=== PATIENT | female | born 1965 | race Caucasian/White ===

== ENCOUNTER 2016-06-16 11:44 | Emergency (ER) | payer OTHER ==
[~2016-06-16] VITALS: Wt 63.5 kg
[~2016-06-16 11:44] MED LIST: ATIVAN0.5 MG PO; BACTRIM DS 8001 TAB PO; BUSPAR10 MG PO; CATAFLAM50 MG PO; CEPHALEXIN500 M1 PO; COGENTIN PO; DEPAKOTE500 MG PO; LISINOPRIL10 MG PO; LISINOPRIL5 MG PO; Motrin,Rufen800 MG PO; NEURONTIN300 MG PO; SEROQUEL200 MG PO; SEROQUEL25 MG PO; SEROQUEL400 M1 PO; SPIRIVA18 MCG INH; VISTARIL25 M1 PO; ZOLOFT PO
[2016-06-16] MEDS ORDERED: GABAPENTIN400 MG PO (12:07)
[2016-06-16] MEDS ORDERED: BENZTROPINE MESY1 MG PO (12:07)
[2016-06-16] MEDS ORDERED: SERTRALINE HYD100 MG PO (12:08)
[2016-06-16] MEDS ORDERED: ARIPIPRAZOLE10 MG PO (12:08)
[2016-06-16 12:45] LABS: URINE AMPHETAMINES < 1000 (1000ng/ml); URINE BARBITURATES < 200 (200ng/ml); URINE COCAINE < 300 (300ng/ml)
[2016-06-16 14:20] LABS: BASO # 0.1 10*3/uL (0.0-0.1); BASO % 0.6 % (0.0-1.0); EOS # 0.2 10*3/uL (0.0-0.4); EOS % 2.1 % (1.0-4.0); HEMATOCRIT 40.2 % (37.0-47.0); HEMOGLOBIN 13.5 g/dl (12.0-16.0); LYMPH # 2.4 10*3/uL (1.3-4.4); MEAN CELL VOLUME 90.1 fl (81.0-99.0); MEAN CORPUSCULAR HGB 30.3 pg (27.0-31.0); MEAN CORPUSCULAR HGB CONC 33.6 g/dl (33.0-37.0); MEAN PLATELET VOLUME 9.3 fl (9.6-12.3); MONO # 0.6 10*3/uL (0.1-1.0); MONO % 6.1 % (3.0-9.0); NEUT # 7.1 10*3/uL (2.3-7.9); NEUT % 67.8 % (47.0-73.0); PLATELET COUNT AUTOMATED 376 10*3/uL (130-400); RED BLOOD COUNT 4.46 10*6/uL (4.10-5.10); RED CELL DISTRI WIDTH 14.5 % (0-14.5); WHITE BLOOD COUNT 10.5 10*3/uL (4.8-10.8)
[2016-06-16 14:30] LABS: PROTHROMBIN TIME 10.3 SECONDS (9.0-12.4)
[2016-06-16 14:30] LABS: BILIRUBIN NEGATIVE (NEGATIVE); BLOOD NEGATIVE (NEGATIVE); CLARITY CLOUDY (CLEAR); COLOR YELLOW (YELLOW); GLUCOSE NEGATIVE (NEGATIVE); KETONE NEGATIVE (NEGATIVE); LEUKO ESTERASE NEGATIVE (NEGATIVE); NITRITE NEGATIVE (NEGATIVE); PH 5.5 (5.0-9.0); PROTEIN NEGATIVE (NEGATIVE); SPECIFIC GRAVITY >= 1.030 (1.005-1.030); UROBILINOGEN 0.2 E.U./dl (0.2-1.0)
[2016-06-16 14:39] LABS: ALBUMIN 4.1 gm/dl (3.1-4.5); BUN 21 mg/dl (7-24); CARBON DIOXIDE 25 mmol/L (21-32); CHLORIDE 108 mmol/L (98-107); CKMB 0.9 ng/ml (0.5-3.6); EST GLOM FILT AFRICAN AMERICAN > 60 ml/min; GLUCOSE 99 mg/dL (65-99); MAGNESIUM 2.3 mg/dL (1.5-2.1); POTASSIUM 4.4 mmol/L (3.5-5.1); SGOT/AST 17 IU/L (3-35); SGPT/ALT 21 U/L (12-78); SODIUM 142 mmol/L (136-145)
[2016-06-16 14:40] LABS: ALKALINE PHOSPHATASE 125 U/L (45-117); BILIRUBIN, TOTAL 0.3 mg/dl (0.2-1.0); C-REACTIVE PROTEIN 1.34 MG/DL (0-0.3); CPK 48 U/L (26-192); TOTAL PROTEIN 8.5 gm/dL (6.4-8.2)
[2016-06-16 14:40] LABS: URINE REFLEX COMMENT NO (NO)
[2016-06-16 14:41] LABS: EPITHELIAL CELLS 21-30; MUCOUS 2+; RBC 0-2 rbc/hpf (0-2)
[2016-06-16 14:42] LABS: TROPONIN I < 0.015 ng/ml (<0.045)
== END 2016-06-16 16:39 | disposition home or self-care (01) ==
LOC: ED 11:44
PROVIDERS: Emergency Medicine; Nurse Practitioner Family
DX: Z91.14 Patient's other noncompliance with medication regimen (principal); R82.5 Elevated urine levels of drugs, medicaments and biological substances; F17.200 Nicotine dependence, unspecified, uncomplicated

== ENCOUNTER → 2016-09-09 | Outpatient (CLI) | payer OTHER ==
[~2016-09-09] MED LIST changes: +ARIPIPRAZOLE10 MG PO; +BENZTROPINE MESY1 MG PO; +GABAPENTIN400 MG PO; +SERTRALINE HYD100 MG PO
[2016-09-09 08:41] LABS: BASO # 0.1 10*3/uL (0.0-0.1); BASO % 0.9 % (0.0-1.0); EOS # 0.2 10*3/uL (0.0-0.4); EOS % 1.9 % (1.0-4.0); HEMATOCRIT 41.1 % (37.0-47.0); HEMOGLOBIN 13.8 g/dl (12.0-16.0); LYMPH # 2.6 10*3/uL (1.3-4.4); LYMPH % 22.4 % (27.0-41.0); MEAN CELL VOLUME 89.5 fl (81.0-99.0); MEAN CORPUSCULAR HGB 30.1 pg (27.0-31.0); MEAN CORPUSCULAR HGB CONC 33.6 g/dl (33.0-37.0); MEAN PLATELET VOLUME 9.1 fl (9.6-12.3); MONO # 0.9 10*3/uL (0.1-1.0); MONO % 7.3 % (3.0-9.0); NEUT # 7.9 10*3/uL (2.3-7.9); NEUT % 67.2 % (47.0-73.0); PLATELET COUNT AUTOMATED 385 10*3/uL (130-400); RED BLOOD COUNT 4.59 10*6/uL (4.10-5.10); RED CELL DISTRI WIDTH 14.1 % (0-14.5); WHITE BLOOD COUNT 11.8 10*3/uL (4.8-10.8)
[2016-09-09 09:03] LABS: HEMOGLOBIN A1c 5.9 % (4.8-5.6)
[2016-09-09 09:11] LABS: ALBUMIN 3.8 gm/dl (3.1-4.5); BILIRUBIN, DIRECT < 0.1 mg/dL (0.0-0.2); BILIRUBIN, TOTAL 0.2 mg/dl (0.2-1.0); BUN 16 mg/dl (7-24); CARBON DIOXIDE 26 mmol/L (21-32); CHLORIDE 105 mmol/L (98-107); CHOLESTEROL 337 mg/dL (<200); EST GLOM FILT AFRICAN AMERICAN > 60 ml/min; GLUCOSE 92 mg/dL (65-99); POTASSIUM 4.4 mmol/L (3.5-5.1); SGOT/AST 14 IU/L (3-35); SGPT/ALT 17 U/L (12-78); SODIUM 139 mmol/L (136-145); T3 UPTAKE 32 % (31-39); TRIGLYCERIDES 502 mg/dl (<150)
[2016-09-09 09:19] LABS: ALKALINE PHOSPHATASE 128 U/L (45-117); FREE T4 0.72 ng/dl (0.76-1.46); HDL CHOLESTEROL 46 mg/dl (40-60); TOTAL PROTEIN 8.3 gm/dL (6.4-8.2)
== END | disposition home or self-care (01) ==
LOC: LAB 08:06
PROVIDERS: Nurse Practitioner Family
DX: Z79.899 Other long term (current) drug therapy (principal)

== ENCOUNTER 2016-09-12 07:27 | Emergency (ER) | payer OTHER ==
[~2016-09-12] VITALS: Ht 157.4 cm; Wt 63.5 kg
[2016-09-12] MEDS ORDERED: XANAX0.5 MG PO (07:34)
[2016-09-12] MEDS ORDERED: Motrin,Rufen800 MG PO (09:04)
== END 2016-09-12 09:09 | disposition home or self-care (01) ==
LOC: ED 07:27
DX: S90.31XA Contusion of right foot, initial encounter (principal); S60.222A Contusion of left hand, initial encounter; F17.200 Nicotine dependence, unspecified, uncomplicated; W18.09XA Striking against other object with subsequent fall, initial encounter; Y93.89 Activity, other specified; Y92.9 Unspecified place or not applicable; Y99.9 Unspecified external cause status

== ENCOUNTER 2016-11-14 16:52 | Inpatient (IN) | payer OTHER ==
[~2016-11-14] VITALS: Ht 157.5 cm; Wt 68.3 kg
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
--- NOTE | ~2016-11-14 | CON ---
[place], [place] REPORT OF CONSULTATION NAME: LEYLA SIFUENTES UNIT #: [id number] ROOM: [facility] DOCTOR: ATUL COULTER MD BIRTHDATE: [birth year] DOS: 11/17/2016 PSYCHIATRIC CONSULT. CHIEF COMPLAINT: "Can I go, I'm not suicidal, I'm not gonna hurt myself or anybody." HISTORY OF PRESENT ILLNESS: This is a 51-year-old white female who was admitted through the Emergency Room due to nausea and vomiting. The patient upon admission was found to have an elevated ammonia level of 67 and was rather confused and at times, belligerent. She was not totally cooperating with her care. Dr. Fitzpatrick did see her over the weekend and felt that she needed to be pink slipped so that she can have further medical treatment. She does report a lengthy history of bipolar disorder as well as PTSD and anxiety. The patient sees Vonda Wyman as well as a counselor at [facility] and has been prescribed gabapentin, Zoloft and Cogentin and states that these medications have been working for her. She denies depression at the current time. She convincingly denies suicidal ideation, homicidal ideation or any self-injurious behavior. She reports that she has appointments with her counselor and with Vonda [facility] and plans to follow up with them closely. MENTAL STATUS: She is alert and oriented to person, place with some time gaps. Mood does seem to be euthymic. Affect is appropriate. There are no symptoms of melina or hypomania. There are no overt auditory or visual hallucinations. No delusions, no paranoia. No suicidal thoughts, no self-injurious thoughts. She is forward thinking and has positive plans for the future. DIAGNOSES: Bipolar type 2 and posttraumatic stress disorder and alcohol abuse, if not alcohol dependence. PLAN: The patient should remain on her current psychotropic regimen. She should follow up with Dr. Vonda Wyman at [facility], her appointment is on November 25. There is no reason to continue the pink slip at this time as she is not acutely lethal. ATUL COULTER MD CM:CONSTR:REPORT OF CONSULTATION 1051 11/17/16 1341 interface
[~2016-11-14 16:52] MED LIST changes: +XANAX0.5 MG PO
[2016-11-14 17:24] LABS: BASO # 0.1 10*3/uL (0.0-0.1); BASO % 0.6 % (0.0-1.0); EOS # 0.1 10*3/uL (0.0-0.4); EOS % 0.6 % (1.0-4.0); HEMATOCRIT 39.4 % (37.0-47.0); HEMOGLOBIN 13.7 g/dl (12.0-16.0); LYMPH # 2.5 10*3/uL (1.3-4.4); LYMPH % 17.1 % (27.0-41.0); MEAN CELL VOLUME 83.8 fl (81.0-99.0); MEAN CORPUSCULAR HGB 29.1 pg (27.0-31.0); MEAN CORPUSCULAR HGB CONC 34.8 g/dl (33.0-37.0); MEAN PLATELET VOLUME 9.2 fl (9.6-12.3); MONO # 0.7 10*3/uL (0.1-1.0); MONO % 4.6 % (3.0-9.0); NEUT # 11.1 10*3/uL (2.3-7.9); NEUT % 76.9 % (47.0-73.0); PLATELET COUNT AUTOMATED 360 10*3/uL (130-400); WHITE BLOOD COUNT 14.4 10*3/uL (4.8-10.8)
[2016-11-14 17:41] LABS: ALBUMIN 3.4 gm/dl (3.1-4.5); ALKALINE PHOSPHATASE 127 U/L (45-117); BUN 8 mg/dl (7-24); CHLORIDE 107 mmol/L (98-107); CREATININE 0.69 mg/dL (0.55-1.02); POTASSIUM 3.5 mmol/L (3.5-5.1); SGOT/AST 18 IU/L (3-35); SGPT/ALT 18 U/L (12-78); SODIUM 139 mmol/L (136-145); TOTAL PROTEIN 7.4 gm/dL (6.4-8.2)
[2016-11-14 17:44] LABS: TROPONIN I < 0.015 ng/ml (<0.045)
[2016-11-14 17:45] LABS: ACETAMINOPHEN (TYLENOL) < 2.0 ug/ml (10-30)
[2016-11-14 17:54] VITALS: BP 132/97
--- NOTE | 2016-11-14 18:15 | NUR ---
PATIENT NOTED TO BE ATTEMPTING TO LEAVE SEVERAL TIMES. SECURITY HAS BEEN CALLED. PATIENT HAS BEEN PLACED INTO ROOM #11 AND MEDICATED WITH ATIVAN.
--- NOTE | 2016-11-14 18:41 | NUR ---
PATIENTS SHIRT HAS BEEN BAGGED AND PLACED INTO THE MED ROOM AT THIS TIME.
--- NOTE | 2016-11-14 18:42 | NUR ---
PATIENT STILL STANDING AT ROOM #11 DOOR BEATING ON DOOR WITH HANDS. BEATING ON WINDOW WITH HANDS.
--- NOTE | 2016-11-14 19:17 | NUR ---
PATIENT MOVES OUT OF ROOM 11 PUT INTO ROOM IN DIRECT VIEW OF NURSES DESK.
[2016-11-14 19:27] LABS: URINE AMPHETAMINES < 1000 (1000ng/ml); URINE BARBITURATES < 200 (200ng/ml); URINE BENZODIAZEPINES < 200 (200ng/ml); URINE CANNABINOIDS (THC) > 50 (50ng/ml); URINE COCAINE < 300 (300ng/ml); URINE METHADONE < 300 (300ng/ml); URINE OPIATES < 300 (300ng/ml)
[2016-11-14 19:29] LABS: URINE PHENCYCLIDINE < 25 (25ng/ml)
[2016-11-14 19:50] VITALS: BP 127/86
--- NOTE | 2016-11-14 20:24 | NUR ---
[facility] CAME TO GET PATIENT AND PATIENT RIPPED OUT IV. [facility] UNABLE TO TAKE PATIENT UNTIL PATIENT IS MORE COMPLIANT. PATIENT TRYING TO LEAVE, AGITATED HAD TO BE PUT INTO ROOM 11.
--- NOTE | 2016-11-14 20:33 | NUR ---
ATTEMPTED TO CHICKEN FANCIER PATIENT FROM ER. PATIENT WAS AGGRESSIVE. PULLED OUT IV. YELLING AT SECURITY. PATIENT WAS ESCORTED BY SECURITY BACK TO ER ROOM 11. NURSING RELATIONS LIAISON NOTIFIED.
--- NOTE | 2016-11-14 20:40 | NUR ---
PATIENT VISUALIZED ON VIDEO MONITOR
--- NOTE | 2016-11-14 21:00 | NUR ---
PATIENT MOVED BACK TO ROOM 5. PLACED ON MONITOR
[2016-11-14 21:25] VITALS: BP 124/80
--- NOTE | 2016-11-14 21:30 | NUR ---
[facility] COMING DOWN TO GET PATIENT. SHE REMAINS IN BED
[2016-11-14 21:45] VITALS: BP 149/83
--- NOTE | 2016-11-14 21:45 | NUR ---
A 51, admitted to ICCU, under the services of MATEUS Urena DO with a diagnosis of METABOLIC ENCEPHALOPATHY. Chief complaint is CONFUSION AT HOME. Patient arrived via stretcher from ER. Monitor applied. Initial assessment completed. Vital signs taken and recorded. MATEUS URENA DO notified of admission to the unit. Orders received. See assessment for past medical history, medications and allergies. Patient and/or family oriented to unit. [facility] visitation policy reviewed. Clothing/patient valuable form completed. GOMEZ RODRIGUEZ
--- NOTE | 2016-11-14 21:45 | NUR ---
UNABLE TO DO MED REC. PATIENT IS CONFUSED. PATIENTS DAUGHTER STATES PATIENT USES [facility] BLOOR IN [place].
--- NOTE | 2016-11-14 22:00 | NUR ---
I SPOKE TO KENNETH FREEMAN IN REGARDS TO PLACEMENT. SHE STATAES THE PATIENT MUST BE MEDICALLY CLEARED AND HAVE AN ETOH LEVEL <80 TO MAKE A REFERRAL FOR PSYCH PLACEMENT. SHE SAID SHE WILL NOT BE ABLE TO HAVE THE PATIENT TRANSFERRED TONIGHT. DR. GONZALEZ NOTIFIED.
[2016-11-15] VITALS (7 sets, daily range): BP systolic 119–172; BP diastolic 78–106
--- NOTE | 2016-11-15 03:27 | NUR ---
PATIENT IS ALERT AND COOPERATIVE. SHE IS ORIENTED TO PERSON AND PLACE. SHE IS FORGETFUL. WRIST RESTRAINTS ARE OFF AT THIS TIME. 1:1. SITTER AT BEDSIDE. WILL CONTINUE TO MONITOR.
--- NOTE | 2016-11-15 05:59 | NUR ---
PATIENT IS ALERT AND ORIENTED. SITTING UP WATCHING TV. COOPERATIVE AND PLEASANT. DR. MCNAIR NOTIFIED. 1:1 DISCONTINUED.
[2016-11-15 06:17] LABS: BASO # 0.1 10*3/uL (0.0-0.1); BASO % 0.7 % (0.0-1.0); EOS # 0.1 10*3/uL (0.0-0.4); EOS % 1.1 % (1.0-4.0); HEMATOCRIT 41.5 % (37.0-47.0); HEMOGLOBIN 13.8 g/dl (12.0-16.0); LYMPH # 2.7 10*3/uL (1.3-4.4); LYMPH % 21.9 % (27.0-41.0); MEAN CORPUSCULAR HGB 28.9 pg (27.0-31.0); MEAN CORPUSCULAR HGB CONC 33.3 g/dl (33.0-37.0); MEAN PLATELET VOLUME 9.2 fl (9.6-12.3); MONO # 0.8 10*3/uL (0.1-1.0); MONO % 6.3 % (3.0-9.0); NEUT # 8.5 10*3/uL (2.3-7.9); NEUT % 69.8 % (47.0-73.0); PLATELET COUNT AUTOMATED 355 10*3/uL (130-400); RED BLOOD COUNT 4.77 10*6/uL (4.10-5.10); RED CELL DISTRI WIDTH 14.2 % (0-14.5); WHITE BLOOD COUNT 12.2 10*3/uL (4.8-10.8)
--- NOTE | 2016-11-15 06:38 | NUR ---
DR. GONZALEZ AND DR. MCNAIR NOTIFIED THAT PATIENT WANTS TO LEAVE AMA. DR. GONZALEZ SAID HE WILL BE UP TO TALK TO PATIENT.
[2016-11-15 06:48] LABS: ALBUMIN 3.4 gm/dl (3.1-4.5); BUN 9 mg/dl (7-24); CHLORIDE 109 mmol/L (98-107); CHOLESTEROL 339 mg/dL (<200); CREATININE 0.86 mg/dL (0.55-1.02); MAGNESIUM 1.9 mg/dL (1.5-2.1); PHOSPHOROUS 2.6 mg/dL (2.5-4.9); POTASSIUM 3.8 mmol/L (3.5-5.1); SGOT/AST 17 IU/L (3-35); SGPT/ALT 22 U/L (12-78); SODIUM 144 mmol/L (136-145); TOTAL PROTEIN 7.6 gm/dL (6.4-8.2); TRIGLYCERIDES 894 mg/dl (<150)
[2016-11-15 06:52] LABS: ACT PARTIAL THROMBO TIME 25.3 SECONDS (20.8-31.5)
[2016-11-15 06:54] LABS: ALKALINE PHOSPHATASE 135 U/L (45-117); HDL CHOLESTEROL 38 mg/dl (40-60)
[2016-11-15 06:55] LABS: BILIRUBIN NEGATIVE (NEGATIVE); BLOOD NEGATIVE (NEGATIVE); CLARITY SL CLOUDY (CLEAR); COLOR YELLOW (YELLOW); GLUCOSE NEGATIVE (NEGATIVE); KETONE NEGATIVE (NEGATIVE); LEUKO ESTERASE 1+ (NEGATIVE); NITRITE NEGATIVE (NEGATIVE); UROBILINOGEN 0.2 E.U./dl (0.2-1.0)
--- NOTE | 2016-11-15 07:08 | NUR ---
DR. PERALES NOTIFIED THAT [facility] HE IS COVERING FOR DR. COULTER TODAY. DR. PERALES SAID TO CALL [facility] AND NOTIFY NURSING STAFF THAT HE HAS A PATIENT TO SEE IN [facility]U. I CALLED AND SPOKE TO AZAEL BERRY ON [facility] REGARDING CONSULT. SHE SAID THAT THE NURSING STAFF WILL GIVE DR. PERALES THE PATIENT INFORMATION.
[2016-11-15 07:31] LABS: BACTERIA 1+
[2016-11-15] MEDS ORDERED: HYDROXYZINE PAM25 M1 PO (07:50)
[2016-11-15] MEDS ORDERED: ARIPIPRAZOLE15 MG PO (07:51)
--- NOTE | 2016-11-15 08:00 | NUR ---
Suzanne Shay called in and update was given.
[2016-11-15 08:30] LABS: VITAMIN D, 25-HYDROXY 9.6 ng/mL (30-100)
--- NOTE | 2016-11-15 08:31 | NUR ---
Awake and alert. Dr. Wills notified of hypertension, med rec update and pt. request for nicoderm patch.
--- NOTE | 2016-11-15 09:49 | NUR ---
Dr. Fitzpatrick in to evaulate, [place] slip obtained. see dictation. Med for htn and urge to smoke.
--- NOTE | 2016-11-15 15:56 | NUR ---
1530 Medicated for anxiety, see EMar [address] Ramos notified.
--- NOTE | 2016-11-15 16:07 | NUR ---
Dr. Ramos called in requests that lopressor be given early , when asked abt 2200 dose stated to give that as well. Lopressor 25mg given for htn.
--- NOTE | 2016-11-15 16:27 | NUR ---
Requests additional ativan. Stated she thinks she needs it. Held out tremulous hand. Ativan was given.
--- NOTE | 2016-11-15 18:58 | NUR ---
Medicated for continued anxiety.
--- NOTE | 2016-11-15 19:16 | NUR ---
24 HR chart check completed.
--- NOTE | 2016-11-15 22:20 | NUR ---
SCHEDULED LIBRIUM GIVEN. PRN ATIVAN GIVEN FOR C/O ANXIETY.
--- NOTE | 2016-11-15 23:20 | NUR ---
DENIES ANXIETY. NO SIGNS OF WITHDRAWAL/ANXIETY. LIBRIUM AND ATIVAN EFFECTIVE.
[2016-11-16] VITALS (7 sets, daily range): BP systolic 133–160; BP diastolic 90–105
--- NOTE | 2016-11-16 02:55 | NUR ---
PATIENT GETTING UP AND DISCONNECTING MONITOR LEADS NUMEROUS TIMES. C/O ANXIETY. MEDICATED WITH PRN ATIVAN.
--- NOTE | 2016-11-16 03:40 | NUR ---
PATIENT IS ASLEEP AT THIS TIME. NO SIGNS OF ANXIETY. ATIVAN EFFECTIVE.
--- NOTE | 2016-11-16 05:02 | NUR ---
ATIVAN GIVEN FOR ANXIET. PATIENT IS GETTING UP AND PUTTING ON CLOTHES OVER HOSPITAL GOWNS. REQUESTING TO LEAVE ICCU. REQUESTING TO GET UP AND WALK IN THE HALLWAY. WILL MONITOR FOR EFFECTIVENESS.
--- NOTE | 2016-11-16 06:00 | NUR ---
PATIENT LAYING IN BED WATCHING TV. NO SIGNS OF ANXIETY. ATIVAN EFFECTIVE.
--- NOTE | 2016-11-16 09:15 | NUR ---
PATIENT VERY ANXIOUS AT THIS TIME. VERY RESTLESS. PATIENT REQUESTING ATIVAN. MEDICATED PER PRN ORDER. WILL CONTINUE TO MONITOR.
--- NOTE | 2016-11-16 13:05 | NUR ---
MEDICATED WITH ATIVAN PO FOR TREMORS, REPETITIVE TALK AND SHIVERING. BLANKETS APPLIED.
--- NOTE | 2016-11-16 13:52 | NUR ---
VISTARIL GIVEN FOR INCREASING ANXIETY AFTER BOYFRIEND/FRIEND CAME IN. HE IS TRYING TO GET HER TO UNDERSTAND THAT SHE NEEDS TO HAVE PATIENCE BUT EVERY TIME HE COMES SHE GETS WOUND UP AND WANTS TO LEAVE. PATIENT ONCE AGAIN EXPLAINED THAT SHE CANNOT LEAVE OR GO SMOKE. SHE IS INTERMITTENTLY CRYING. HE IS ATTEMPTING TO ENCOURAGE HER AT THIS TIME.
--- NOTE | 2016-11-16 15:04 | NUR ---
SLEEPING FINALLY AFTER VISTARIL & EARLIER ATIVAN
--- NOTE | 2016-11-16 21:43 | NUR ---
PT MEDICATED WITH VISTARIL PO AT HER REQUEST FOR C/O ANXIETY.
--- NOTE | 2016-11-16 22:47 | NUR ---
PT MEDICATED WITH ATIVAN 1MG PO FOR CONTINUED C/O ANXIETY AFTER VISTARIL GIVEN.
--- NOTE | 2016-11-16 23:29 | NUR ---
PT SLEEPING SINCE BEING MEDICATED WITH ATIVAN 1MG PO FOR ANXIETY.
--- NOTE | 2016-11-17 03:00 | NUR ---
PT MEDICATED WITH ATIVAN 1MG PO FOR ANXIETY AT HER REQUEST.
[2016-11-17 04:00] VITALS: BP 133/92
[2016-11-17 06:44] LABS: BASO # 0.1 10*3/uL (0.0-0.1); BASO % 0.6 % (0.0-1.0); EOS # 0.1 10*3/uL (0.0-0.4); EOS % 0.9 % (1.0-4.0); HEMATOCRIT 41.8 % (37.0-47.0); HEMOGLOBIN 14.5 g/dl (12.0-16.0); LYMPH # 3.2 10*3/uL (1.3-4.4); LYMPH % 26.8 % (27.0-41.0); MEAN CORPUSCULAR HGB 29.5 pg (27.0-31.0); MEAN CORPUSCULAR HGB CONC 34.7 g/dl (33.0-37.0); MEAN PLATELET VOLUME 9.3 fl (9.6-12.3); MONO # 0.8 10*3/uL (0.1-1.0); MONO % 7.1 % (3.0-9.0); NEUT # 7.6 10*3/uL (2.3-7.9); NEUT % 64.3 % (47.0-73.0); PLATELET COUNT AUTOMATED 365 10*3/uL (130-400); RED BLOOD COUNT 4.92 10*6/uL (4.10-5.10); RED CELL DISTRI WIDTH 13.8 % (0-14.5); WHITE BLOOD COUNT 11.8 10*3/uL (4.8-10.8)
[2016-11-17 06:58] LABS: BUN 11 mg/dl (7-24); CHLORIDE 101 mmol/L (98-107); CREATININE 0.93 mg/dL (0.55-1.02); POTASSIUM 3.9 mmol/L (3.5-5.1); SODIUM 137 mmol/L (136-145)
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
[2016-11-17 08:00] VITALS: BP 132/95
--- NOTE | 2016-11-17 09:37 | NUR ---
Dumb Waiter Operator in to talk to patient. Patient states lives at HOME IN AN APARTMENT ALONE with . There are 0 steps in the home. Physician: NO PCP Pharmacy: [facility] Home health services: NONE Patient's level of ADLs: INDEPENDENT Patient has working utilities: YES DME: NONE Follow-up physician's appointment after d/c: WILL BE MADE PRIOR TO DC Does patient want to access PORTAL?: Discharge plan HOME. DEMIAN VALENTIN
[2016-11-17] MEDS ORDERED: VITAMIN D31000 UNI1 PO (11:05)
[2016-11-17] MEDS ORDERED: KLOR-CON M2020 ME1 PO (11:05)
[2016-11-17] MEDS ORDERED: METOPROLOL TART50 M1 PO (11:05)
[2016-11-17] MEDS ORDERED: FENOFIBRATE160 MG PO (11:05)
[2016-11-17] MEDS ORDERED: HYDR25T PO (11:05)
--- NOTE | 2016-11-17 11:23 | NUR ---
DISCHARGED TO HOME IN CARE OF BOYFRIEND.
== END 2016-11-17 11:23 | disposition home or self-care (01) | DRG 871 ==
LOC: ED 16:52 → EDHOLD 17:58 → ICCU 17:58
PROVIDERS: Nurse Practitioner Family; ADMIT Internal Medicine
DX: A41.9 Sepsis, unspecified organism (principal); G93.41 Metabolic encephalopathy; F10.121 Alcohol abuse with intoxication delirium; K72.90 Hepatic failure, unspecified without coma; E44.1 Mild protein-calorie malnutrition; N39.0 Urinary tract infection, site not specified; F23 Brief psychotic disorder; E83.51 Hypocalcemia; F31.9 Bipolar disorder, unspecified; F43.10 Post-traumatic stress disorder, unspecified; R73.9 Hyperglycemia, unspecified; F41.9 Anxiety disorder, unspecified; Z60.2 Problems related to living alone; F19.94 Other psychoactive substance use, unspecified with psychoactive substance-induced mood disorder; I10 Essential (primary) hypertension; Z87.81 Personal history of (healed) traumatic fracture; Z82.49 Family history of ischemic heart disease and other diseases of the circulatory system; Z79.899 Other long term (current) drug therapy; Z72.0 Tobacco use; Z68.27 Body mass index [BMI] 27.0-27.9, adult

== ENCOUNTER 2017-04-26 07:30 | Emergency (ER) | payer OTHER ==
[~2017-04-26] VITALS: Ht 170.1 cm; Wt 65.8 kg
--- NOTE | ~2017-04-26 | EKG ---
[place], [place] ELECTROCARDIOGRAM REPORT NAME: LEYLA SIFUENTES UNIT #: [id number] ROOM: DOCTOR: JESSICA ALVAREZ MD BIRTHDATE: [birth year] DOS: 04/26/2017 TIME: 0816 hours. Normal sinus rhythm at 91 beats per minute. The tracing is normal. No previous tracing is available for comparison. JESSICA ALVAREZ MD CM:EKGRPT:ELECTROCARDIOGRAM REPORT [id number] JESSICA ALVAREZ MD
[~2017-04-26 07:30] MED LIST changes: +ARIPIPRAZOLE15 MG PO; +FENOFIBRATE160 MG PO; +HYDR25T PO; +HYDROXYZINE PAM25 M1 PO; +KLOR-CON M2020 ME1 PO; +METOPROLOL TART50 M1 PO; +VITAMIN D31000 UNI1 PO
[2017-04-26 08:14] LABS: BILIRUBIN NEGATIVE (NEGATIVE); BLOOD 1+ (NEGATIVE); CLARITY CLOUDY (CLEAR); COLOR YELLOW (YELLOW); GLUCOSE NEGATIVE (NEGATIVE); KETONE NEGATIVE (NEGATIVE); LEUKO ESTERASE 3+ (NEGATIVE); NITRITE POSITIVE (NEGATIVE); PH 5.5 (5.0-9.0); SPECIFIC GRAVITY <= 1.005 (1.005-1.030); UROBILINOGEN 0.2 E.U./dl (0.2-1.0)
[2017-04-26 08:22] LABS: WBC TNTC wbc/hpf (0-5)
[2017-04-26 08:32] LABS: BASO # 0.1 10*3/uL (0.0-0.1); BASO % 0.6 % (0.0-1.0); EOS # 0.1 10*3/uL (0.0-0.4); EOS % 1.3 % (1.0-4.0); HEMATOCRIT 37.6 % (37.0-47.0); HEMOGLOBIN 12.4 g/dl (12.0-16.0); LYMPH # 2.2 10*3/uL (1.3-4.4); LYMPH % 22.9 % (27.0-41.0); MEAN CELL VOLUME 88.1 fl (81.0-99.0); MEAN PLATELET VOLUME 9.3 fl (9.6-12.3); MONO # 0.7 10*3/uL (0.1-1.0); MONO % 6.9 % (3.0-9.0); NEUT # 6.6 10*3/uL (2.3-7.9); PLATELET COUNT AUTOMATED 351 10*3/uL (130-400); RED BLOOD COUNT 4.27 10*6/uL (4.10-5.10); RED CELL DISTRI WIDTH 13.8 % (0-14.5); WHITE BLOOD COUNT 9.7 10*3/uL (4.8-10.8)
[2017-04-26 08:41] LABS: ACT PARTIAL THROMBO TIME 26.1 SECONDS (20.8-31.5)
[2017-04-26 08:49] LABS: ALBUMIN 3.8 gm/dl (3.1-4.5); ALKALINE PHOSPHATASE 84 U/L (45-117); BUN 24 mg/dl (7-24); CHLORIDE 110 mmol/L (98-107); CREATININE 0.98 mg/dL (0.55-1.02); LIPASE 155 U/L (73-393); POTASSIUM 4.1 mmol/L (3.5-5.1); SGOT/AST 21 IU/L (3-35); SGPT/ALT 18 U/L (12-78); SODIUM 140 mmol/L (136-145); TOTAL PROTEIN 7.4 gm/dL (6.4-8.2)
[2017-04-26 08:50] LABS: TROPONIN I < 0.015 ng/ml (<0.045)
[2017-04-26 08:56] LABS: URINE AMPHETAMINES < 1000 (1000ng/ml); URINE BARBITURATES < 200 (200ng/ml); URINE BENZODIAZEPINES > 200 (200ng/ml); URINE CANNABINOIDS (THC) > 50 (50ng/ml); URINE COCAINE < 300 (300ng/ml); URINE METHADONE < 300 (300ng/ml); URINE OPIATES < 300 (300ng/ml)
[2017-04-26 08:58] LABS: URINE PHENCYCLIDINE < 25 (25ng/ml)
[2017-04-26] MEDS ORDERED: SERTRALINE HYD100 MG PO (09:21)
[2017-04-26] MEDS ORDERED: SEPTDS PO (09:21)
[2017-04-26] MEDS ORDERED: HYDROXYZINE PAM25 M1 PO (09:21)
== END 2017-04-26 09:50 | disposition home or self-care (01) ==
LOC: ED 07:30
PROVIDERS: Emergency Medicine
DX: F41.9 Anxiety disorder, unspecified (principal); F19.239 Other psychoactive substance dependence with withdrawal, unspecified; F17.200 Nicotine dependence, unspecified, uncomplicated; F11.10 Opioid abuse, uncomplicated; F12.10 Cannabis abuse, uncomplicated; I10 Essential (primary) hypertension; F31.9 Bipolar disorder, unspecified; Z98.890 Other specified postprocedural states; Z79.899 Other long term (current) drug therapy

== ENCOUNTER 2017-04-30 16:38 | Inpatient (IN) | payer OTHER ==
[~2017-04-30] VITALS: Ht 158.7 cm; Wt 63.7 kg
--- NOTE | ~2017-04-30 | CON ---
[place], [place] REPORT OF CONSULTATION NAME: LEYLA SIFUENTES UNIT #: [id number] ROOM: 509 DOCTOR: ATUL COULTER MD BIRTHDATE: [birth year] DOS: 05/02/2017 PSYCHIATRIC CONSULTATION CHIEF COMPLAINT: "Oh, I need to get out of here, I have to pack my stuff and move." HISTORY OF PRESENT ILLNESS: This is a 52-year-old female with a long history of psychiatric illness, who presented to the Emergency Room at [facility] with altered mental status. The patient was brought in via police for erratic behavior at the [facility] [address]. Per the Emergency Room, the patient was attempting to go into other people's apartments. When interviewed in the Emergency Room, she stated that there was blood all over her floor and she needed to find some help. Since her admission to the hospital, the patient has continued to be somewhat erratic. She seems to be in a mixed state of depression with melina. She though, however, during my interview convincingly denies suicidal thoughts, homicidal thoughts or any self-injurious thoughts and is rather forward in her thinking and that she has a plan as far as moving out of [facility] and finding a new place to stay. She states that she follows with Vonda Wyman at the [facility] and has a caseworker intake that she follows with weekly as well. MENTAL STATUS: She is alert and oriented to person, place and time. Mood does seem to be mixed. She at one moment is crying and the next moment is very animated and labile. She does redirect, however, and when engaged is able to make eye contact and make a reasonable amount of sense, although she will at times drift into some bizarre comments. As mentioned previously, the patient is neither suicidal or homicidal. While grossly psychotic, she is able to be in touch enough with reality that she is able to meet her basic needs. Her memory for the most part is fully intact. DIAGNOSIS: Bipolar type 2, rule out bipolar type, mixed. PLAN: I have gone ahead and discontinued her Zoloft and her Abilify in lieu of Cymbalta 30 mg at bedtime and Zyprexa 5 mg at bedtime. At this point, while the patient has definitive psychiatric symptoms present, she is not at risk of harm to self or others and is able to meet her basic needs. I therefore feel that she can safely be discharged. I would recommend, however, that Intensive Care Unit Registered Nurse reaches out to the [facility] and obtain an appointment with Vonda Wyman early next week, so she may follow her patient appropriately. [place], [place] REPORT OF CONSULTATION NAME: LEYLA SIFUENTES UNIT #: [id number] ROOM: 509 DOCTOR: ATUL COULTER MD BIRTHDATE: [birth year] ATUL COULTER MD CM:CONSTR:REPORT OF CONSULTATION 9 05/02/1751 interface
[2017-04-30 16:38] VITALS: BP 152/98
[~2017-04-30 16:38] MED LIST changes: +SEPTDS PO
[2017-04-30] MEDS ORDERED: BENZTROPINE MESY1 MG PO (17:06)
[2017-04-30] MEDS ORDERED: GABAPENTIN400 MG PO (17:06)
[2017-04-30] MEDS ORDERED: ARIPIPRAZOLE15 MG PO (17:07)
[2017-04-30] MEDS ORDERED: SERTRALINE HYD100 MG PO (17:07)
[2017-04-30 17:24] LABS: BASO # 0.1 10*3/uL (0.0-0.1); BASO % 0.7 % (0.0-1.0); EOS % 0.3 % (1.0-4.0); HEMATOCRIT 42.4 % (37.0-47.0); HEMOGLOBIN 14.2 g/dl (12.0-16.0); LYMPH # 2.9 10*3/uL (1.3-4.4); LYMPH % 24.6 % (27.0-41.0); MEAN CELL VOLUME 87.1 fl (81.0-99.0); MEAN CORPUSCULAR HGB 29.2 pg (27.0-31.0); MEAN CORPUSCULAR HGB CONC 33.5 g/dl (33.0-37.0); MEAN PLATELET VOLUME 9.3 fl (9.6-12.3); MONO % 8.4 % (3.0-9.0); NEUT # 7.8 10*3/uL (2.3-7.9); NEUT % 65.6 % (47.0-73.0); PLATELET COUNT AUTOMATED 434 10*3/uL (130-400); RED BLOOD COUNT 4.87 10*6/uL (4.10-5.10); RED CELL DISTRI WIDTH 13.7 % (0-14.5); WHITE BLOOD COUNT 11.8 10*3/uL (4.8-10.8)
[2017-04-30 17:33] LABS: URINE AMPHETAMINES < 1000 (1000ng/ml); URINE BARBITURATES < 200 (200ng/ml); URINE BENZODIAZEPINES > 200 (200ng/ml); URINE CANNABINOIDS (THC) > 50 (50ng/ml); URINE COCAINE < 300 (300ng/ml); URINE METHADONE < 300 (300ng/ml); URINE OPIATES < 300 (300ng/ml)
[2017-04-30 17:34] LABS: BILIRUBIN NEGATIVE (NEGATIVE); BLOOD TRACE-INTACT (NEGATIVE); CLARITY CLOUDY (CLEAR); COLOR YELLOW (YELLOW); GLUCOSE NEGATIVE (NEGATIVE); KETONE NEGATIVE (NEGATIVE); LEUKO ESTERASE 1+ (NEGATIVE); NITRITE NEGATIVE (NEGATIVE); PH 5.5 (5.0-9.0); SPECIFIC GRAVITY >= 1.030 (1.005-1.030); UROBILINOGEN 0.2 E.U./dl (0.2-1.0)
[2017-04-30 17:36] LABS: URINE PHENCYCLIDINE < 25 (25ng/ml)
[2017-04-30 17:40] LABS: ALBUMIN 4.4 gm/dl (3.1-4.5); ALKALINE PHOSPHATASE 95 U/L (45-117); BUN 27 mg/dl (7-24); CHLORIDE 104 mmol/L (98-107); CREATININE 1.47 mg/dL (0.55-1.02); POTASSIUM 4.3 mmol/L (3.5-5.1); SGOT/AST 29 IU/L (3-35); SGPT/ALT 21 U/L (12-78); SODIUM 139 mmol/L (136-145); TOTAL PROTEIN 8.8 gm/dL (6.4-8.2)
[2017-04-30 17:41] LABS: BACTERIA 2+; EPITHELIAL CELLS TNTC; RBC 0-2 rbc/hpf (0-2); URIC ACID CRYSTALS 4+
[2017-04-30 17:42] LABS: ACETAMINOPHEN (TYLENOL) < 2.0 ug/ml (10-30); ETHYL ALCOHOL < 3.0 mg/dl (<3)
[2017-04-30 17:49] LABS: THYROID STIM HORMONE (HS) 0.716 uIU/ml (0.358-4.75)
[2017-04-30 19:58] VITALS: BP 132/86
[2017-04-30] MEDS ORDERED: HYDROXYZINE PAM25 M1 PO (20:27)
[2017-05-01 08:00] VITALS: BP 114/75
[2017-05-01 08:11] LABS: BASO # 0.1 10*3/uL (0.0-0.1); BASO % 1.1 % (0.0-1.0); EOS # 0.2 10*3/uL (0.0-0.4); EOS % 2.6 % (1.0-4.0); HEMATOCRIT 39.8 % (37.0-47.0); HEMOGLOBIN 13.3 g/dl (12.0-16.0); LYMPH # 1.7 10*3/uL (1.3-4.4); LYMPH % 23.7 % (27.0-41.0); MEAN CELL VOLUME 88.1 fl (81.0-99.0); MEAN CORPUSCULAR HGB 29.4 pg (27.0-31.0); MEAN CORPUSCULAR HGB CONC 33.4 g/dl (33.0-37.0); MONO # 0.8 10*3/uL (0.1-1.0); MONO % 10.5 % (3.0-9.0); NEUT # 4.5 10*3/uL (2.3-7.9); NEUT % 61.8 % (47.0-73.0); PLATELET COUNT AUTOMATED 365 10*3/uL (130-400); RED BLOOD COUNT 4.52 10*6/uL (4.10-5.10); WHITE BLOOD COUNT 7.3 10*3/uL (4.8-10.8)
[2017-05-01 08:30] LABS: BUN 20 mg/dl (7-24); CHLORIDE 110 mmol/L (98-107); CREATININE 1.06 mg/dL (0.55-1.02); FREE T4 0.95 ng/dl (0.76-1.46); PHOSPHOROUS 2.4 mg/dL (2.5-4.9); POTASSIUM 4.7 mmol/L (3.5-5.1); SODIUM 143 mmol/L (136-145)
[2017-05-01 09:52] LABS: VITAMIN D, 25-HYDROXY 15.5 ng/mL (30-100)
[2017-05-01 12:00] VITALS: BP 154/92
[2017-05-01 13:00] VITALS: BP 142/84
[2017-05-01 16:00] VITALS: BP 149/93
[2017-05-01 20:00] VITALS: BP 156/87
[2017-05-02 08:05] VITALS: BP 150/96
[2017-05-02 12:00] VITALS: BP 156/86
[2017-05-02] MEDS ORDERED: HYDROXYZINE PAM25 M1 PO (13:51)
[2017-05-02] MEDS ORDERED: GABAPENTIN400 MG PO (13:51)
[2017-05-02] MEDS ORDERED: OLANZAPINE5 MG PO (13:51)
[2017-05-02] MEDS ORDERED: DULOXETINE HCL30 MG PO (13:51)
[2017-05-02] MEDS ORDERED: BENZTROPINE MESY1 MG PO (13:51)
== END 2017-05-02 14:56 | disposition home or self-care (01) | DRG 871 ==
LOC: ED 16:38 → 5E 18:47 → EDHOLD 18:47 → 5E 18:52
PROVIDERS: Nurse Practitioner Family; Student in an Organized Health Care Education/Training Program
DX: A41.9 Sepsis, unspecified organism (principal); G93.41 Metabolic encephalopathy; N17.0 Acute kidney failure with tubular necrosis; N39.0 Urinary tract infection, site not specified; F23 Brief psychotic disorder; D47.3 Essential (hemorrhagic) thrombocythemia; F12.10 Cannabis abuse, uncomplicated; F41.9 Anxiety disorder, unspecified; D72.810 Lymphocytopenia; F43.10 Post-traumatic stress disorder, unspecified; F31.9 Bipolar disorder, unspecified; I10 Essential (primary) hypertension; F17.200 Nicotine dependence, unspecified, uncomplicated; R73.9 Hyperglycemia, unspecified; Z87.81 Personal history of (healed) traumatic fracture; Z82.49 Family history of ischemic heart disease and other diseases of the circulatory system; Z79.899 Other long term (current) drug therapy; Z71.6 Tobacco abuse counseling; R65.20 Severe sepsis without septic shock; M54.30 Sciatica, unspecified side